=== PATIENT | female | born 1995 | race Caucasian/White ===

== ENCOUNTER 2023-01-26 17:10 | Emergency (ER) | payer SELFPAY ==
[2023-01-26] MEDS ORDERED: Methadone 10 MG Tab PO STA (17:30)
== END 2023-01-26 18:13 | disposition home or self-care (01) ==
LOC: MW.ED 17:10
DX: F11.23 Opioid dependence with withdrawal (principal)
CPT/HCPCS: 99283; A9270; 99284

== ENCOUNTER 2023-01-27 13:48 | Emergency (ER) | payer SELFPAY | END 2023-01-27 15:02 | disposition left against medical advice (07) | LOC: MW.ED 13:48 | DX: Z53.21 Procedure and treatment not carried out due to patient leaving prior to being seen by health care provider (principal) ==

== ENCOUNTER 2024-10-30 01:38 | Emergency (ER) | payer MEDICAID | END 2024-10-30 02:02 | LOC: MW.ED 01:38 | DX: Z02.89 Encounter for other administrative examinations (principal); F17.210 Nicotine dependence, cigarettes, uncomplicated | CPT/HCPCS: 99282; 99284 ==

== ENCOUNTER 2025-04-05 23:00 | Emergency (ER) | payer MEDICAID ==
[2025-04-06] MEDS: Diphtheria,Pertussis(Acell),Tetanus Vaccine 0.5 ML Syringe IM ONE (00:45)
== END 2025-04-06 01:15 | disposition left against medical advice (07) ==
LOC: MW.ED 23:00
DX: Z53.21 Procedure and treatment not carried out due to patient leaving prior to being seen by health care provider (principal)
CPT/HCPCS: 73100-26-LT; 73100-LT; 73130-26-LT; 73130-LT; J2003